=== PATIENT | female | born 1980 | race Caucasian/White ===

== ENCOUNTER 2017-02-19 17:02 | Emergency (ER) | payer SELFPAY ==
[~2017-02-19] VITALS: Ht 167.6 cm; Wt 70.0 kg
[2017-02-19 19:21] VITALS: BP 116/70
== END 2017-02-19 19:12 | disposition home or self-care (01) ==
LOC: ED 19:06
DX: F10.120 Alcohol abuse with intoxication, uncomplicated (principal)
CPT/HCPCS: 99283